=== PATIENT | female | born 1935 | race Caucasian/White ===

== ENCOUNTER 2016-09-22 08:12 | Emergency (ER) | payer MEDICARE, OTHER ==
[~2016-09-22] VITALS: Ht 167.6 cm; Wt 56.7 kg
[~2016-09-22 08:12] MED LIST: AMLO5TAB2 PO; APIX5TAB PO; CLON1PAT33 TD; LOVA10TA PO
--- OUTSIDE RECORDS SUMMARY | 2016-09-22 08:17 | XMS REPORT | Continuity of Care Document ---
Author Author [facility] Organization [facility] Address Unknown Phone Unavailable Care Team Providers Care Hat Trimmer Name Role Phone NO, LOCAL PHYSICIAN PCP Unavailable Insurance Providers Payer Name Policy Number Subscriber Name Relationship Wps Medicare Part A Only [id number] Kristin Segura 19 Self / Same As Patient Advance Directives Directive Response Recorded Date/Time Advance Directives No 04/29/16 10:54pm Health Care Power of Letter Of Credit Document Examiner No 04/29/16 10:54pm Organ Donor No 04/29/16 10:54pm Resuscitation Status Full Code 04/29/16 10:54pm Chief Complaint and Reason for Visit Chief Complaint IMPAIRED SWOLLOWING Reason for Visit Atrial fibrillation Cerebral infarct Problems Active Problems Medical Problem Onset Date Status Atrial fibrillation Unknown Acute Cerebral infarct Unknown Acute Medications Current Home Medications Medication Dose Units Route Directions Days/Qty Instructions Start Date Clonidine 1 Each 0.1 Mg Transderm Q7d@16 4 05/05/16 Amlodipine Besylate 5 Mg 5 Mg Oral Daily 30 05/05/16 Apixaban 5 Mg 5 Mg Oral Twice A Day 60 05/05/16 Lovastatin 10 Mg 10 Mg Oral Bedtime 30 05/05/16 Social History Social History Problem Response Recorded Date/Time Alcohol Use Denies Use 04/29/2016 10:55pm Recreational Drug Use No 04/29/2016 10:55pm Recent Foreign Travel No 04/29/2016 11:06pm Recent Infectious Disease Exposure No 04/29/2016 11:06pm Hospitalization with Isolation Denies 05/05/2016 4:08pm Smoking Status Never a Smoker 04/29/2016 10:57pm Recent Hopitalizations No 04/29/2016 10:55pm Hospitalization with Isolation Denies 05/05/2016 4:08pm Query Response Start Date Stop Date Smoking Status Never a Smoker Hospital Discharge Instructions Patient Instructions Physician Instructions Patient Problems: Catastrophic CVA w/right sided hemiparesis HTN OOC AF Dysphagia Goal: Strengthen Follow Up Appt.: Establish care with a doctor Certification (SNF) I certify that SNF services are required to be given on an inpatient basis because of the above named patient's need for [place] [facility] care on a continuing basis for the conditions(s) for which he/she was receiving inpatient hospital services prior to his/her transfer to the SNF. Group Home Facility Order: Nursing Services, Grass[employer] Organizer-Evaluate & Treat, Physical Therapy-Evaluate & Treat, Speech Language-Evaluate & Treat Discharge Diet: Other Diet (pureed diet and liquids with straw) Daily Activity as Tolerated: Yes Kira Fallon May 05, 2016 10:06 Pneu Vac Indicated: Yes Care Plan Goal:: Strengthen Patient Problems: Catastrophic CVA w/right sided hemiparesisHTN OOCAFDysphagia Plan of Care Discharge Date 05/05/16 1:20pm Disposition 09 ADMITTED INPATIENT Instructions/Education Provided Chronic Dysphagia (GEN) Forms Provided PDI Medical Prescriptions See Medication Section Care Plan and Goals See Discharge Instructions Section Functional Status Query Response Date Recorded Patient Orientation Unable to Assess May 04, 2016 11:15am Patient Orientation Non-Verbal/Aphasic Eyes Open May 05, 2016 4:08pm Comprehension Ability Unable to Comprehend May 05, 2016 8:30am Allergies, Adverse Reactions, Alerts No known allergies. Immunizations Name Given Type FLU TRIvalent 5 years - Adult 04/30/16 Administered Vital Signs Acute Vital Signs Vital Response Date/Time Temperature (Fahrenheit) 96.6 degrees F (97.6 - 99.5) 05/05/2016 4:04pm Temperature (Calculated Celsius) 35.11976 degrees C (36.4 - 37.5) 05/05/2016 8:00am Temperature Source Tympanic 05/05/2016 4:04pm Pulse Rate (adult) 85 bpm (60 - 90) 05/05/2016 4:04pm Respiratory Rate 16 bpm (12 - 24) 05/05/2016 4:04pm O2 Sat by Pulse Oximetry 94 % (88 - 100) 05/05/2016 4:04pm Blood Pressure 135/71 mm Hg 05/05/2016 4:04pm Blood Pressure Mean 92 mm Hg 05/05/2016 8:00am Pain Numeric Pain Scale 0-No Pain 05/05/2016 4:04pm Height (Feet) 5 feet 04/29/2016 11:06pm Height (Inches) 9.00 inches 04/29/2016 11:06pm Height (Calculated Centimeters) 175.602937 cm 04/29/2016 11:06pm Weight (Pounds) 129 pounds 05/01/2016 6:00am Weight (Ounces) 3.0 oz 05/01/2016 6:00am Weight (Calculated Grams) 33702.465 gm 05/01/2016 6:00am Weight (Calculated Kilograms) 58.350205 kilograms 05/01/2016 6:00am Calculated BMI 17.9 04/29/2016 11:06pm Capillary Refill Capillary Refill Less Than 3 Seconds 04/30/2016 4:00am Results Laboratory Results Test Name Result Units Flags Reference Collection Date/Time Result Date/ Time Comments White Blood Count 7.8 10^3/uL 4.3-11.0 05/05/2016 4:21am 05/05/2016 5: 07am Red Blood Count 4.06 10^6/uL L 4.35-5.85 05/05/2016 4:21am 05/05/2016 5: 07am Hemoglobin 12.4 G/DL 11.5-16.0 05/05/2016 4:21am 05/05/2016 5:07am Hematocrit 38 % 35-52 05/05/2016 4:21am 05/05/2016 5:07am Mean Corpuscular Volume 93 FL 80-99 05/05/2016 4:21am 05/05/2016 5: 07am Mean Corpuscular Hemoglobin 31 PG 25-34 05/05/2016 4:21am 05/05/2016 5: 07am Mean Corpuscular Hemoglobin Concent 33 G/DL 32-36 05/05/2016 4:21am 5:07am Red Cell Distribution Width 13.9 % 10.0-14.5 05/05/2016 4:2015 5:07am Platelet Count 272 10^3/uL 130-400 05/05/2016 4:05/05/2016 5:07am Mean Platelet Volume 11.1 FL H 7.4-10.4 05/05/2016 4:05/05/2016 5: 07am Neutrophils (%) (Auto) 77 % H 42-75 05/05/2016 4:am 05/05/2016 5:07am Lymphocytes (%) (Auto) 14 % 12-44 05/05/2016 4:05/05/2016 5:07am Monocytes (%) (Auto) 8 % 0-12 05/05/2016 4:05/05/2016 5:07am Eosinophils (%) (Auto) 2 % 0-10 05/05/2016 4:05/05/2016 5:07am Basophils (%) (Auto) 0 % 0-10 05/05/2016 4:05/05/2016 5:07am Neutrophils # (Auto) 6.0 X 10^3 1.8-7.8 05/05/2016 4:05/05/2016 5: 07am Lymphocytes # (Auto) 1.1 X 10^3 1.0-4.0 05/05/2016 4:05/05/2016 5: 07am Monocytes # (Auto) 0.6 X 10^3 0.0-1.0 05/05/2016 4:05/05/2016 5: 07am Eosinophils # (Auto) 0.1 10^3/uL 0.0-0.3 05/05/2016 4:05/05/2016 5 :07am Basophils # (Auto) 0.0 10^3/uL 0.0-0.1 05/05/2016 4:05/05/2016 5: 07am Neutrophils % (Manual) 91 % 04/29/2016 6:00pm 04/29/2016 6:50pm Band Neutrophils 2 % 04/29/2016 6:00pm 04/29/2016 6:50pm Lymphocytes % (Manual) 6 % 04/29/2016 6:00pm 04/29/2016 6:50pm Monocytes % (Manual) 1 % 04/29/2016 6:00pm 04/29/2016 6:50pm Eosinophils % (Manual) 0 % 04/29/2016 6:00pm 04/29/2016 6:50pm Basophils % (Manual) 0 % 04/29/2016 6:00pm 04/29/2016 6:50pm Blood Morphology Comment NORMAL 04/29/2016 6:00pm 04/29/2016 6: 50pm Prothrombin Time 12.9 SEC 12.2-14.7 04/29/2016 6:00pm 04/29/2016 6: 27pm INR Comment 1.0 0.8-1.4 04/29/2016 6:00pm 04/29/2016 6:27pm INTERPRETIVE DATA SUGGESTED THERAPEUTIC RANGE FOR INR'S: VENOUS THROMBOSIS, PULMONARY EMBOLISM, OR PREVENTION OF SYSTEMIC EMBOLISM (EG. IN ATRIAL FIBRILLATION): 2.0 - 3.0 MECHANICAL PROSTHETIC HEART VALVES: 2.5 - 3.5* *NOTE: INR'S UP TO 4.5 MAY BE NECESSARY IN SELECTED GROUPS OF HIGH RISK PATIENTS. [employer] CONSENSUS CONFERENCE ON ANTITHROMBOTIC THERAPY (2000). Activated Partial Thromboplast Time 22 SEC L 24-35 04/29/2016 6:00pm 6:28pm Urine Color YELLOW 04/29/2016 6:30pm 04/29/2016 7:06pm Urine Clarity CLEAR 04/29/2016 6:30pm 04/29/2016 7:06pm Urine pH 7 5-9 04/29/2016 6:30pm 04/29/2016 7:06pm Urine Specific [place] 1.010 * 1.016-1.022 04/29/2016 6:30pm 2015 7:06pm Urine Protein 1+ * NEGATIVE 04/29/2016 6:30pm 04/29/2016 7:06pm Urine Glucose (UA) NEGATIVE NEGATIVE 04/29/2016 6:30pm 04/29/2016 7: 06pm Urine RBC (Auto) NEGATIVE NEGATIVE 04/29/2016 6:30pm 04/29/2016 7: 06pm Urine Ketones 2+ * NEGATIVE 04/29/2016 6:30pm 04/29/2016 7:06pm Urine Nitrite NEGATIVE NEGATIVE 04/29/2016 6:30pm 04/29/2016 7:06pm Urine Bilirubin NEGATIVE NEGATIVE 04/29/2016 6:30pm 04/29/2016 7: 06pm Urine Urobilinogen NORMAL MG/DL NORMAL 04/29/2016 6:30pm 04/29/2016 7: 06pm Urine Leukocyte Esterase NEGATIVE NEGATIVE 04/29/2016 6:30pm 2015 7:06pm Urine RBC 0-2 /HPF 04/29/2016 6:30pm 04/29/2016 7:06pm Urine WBC RARE /HPF 04/29/2016 6:30pm 04/29/2016 7:06pm Urine Bacteria NEGATIVE /HPF 04/29/2016 6:30pm 04/29/2016 7:06pm Urine Crystals NONE /LPF 04/29/2016 6:30pm 04/29/2016 7:06pm Urine Casts NONE /LPF 04/29/2016 6:30pm 04/29/2016 7:06pm Urine Mucus SMALL /LPF * 04/29/2016 6:30pm 04/29/2016 7:06pm Urine Culture Indicated NO 04/29/2016 6:30pm 04/29/2016 7:06pm Sodium Level 141 MMOL/L 135-145 05/05/2016 4:21am 05/05/2016 5:27am Potassium Level 4.0 MMOL/L 3.6-5.0 05/05/2016 4:21am 05/05/2016 5:27am Chloride Level 107 MMOL/L 98-107 05/05/2016 4:21am 05/05/2016 5:27am Carbon Dioxide Level 27 MMOL/L 21-32 05/05/2016 4:21am 05/05/2016 5: 27am Anion Gap 7 MMOL/L 5-14 05/05/2016 4:21am 05/05/2016 5:27am Blood Urea Nitrogen 13 MG/DL 7-18 05/05/2016 4:21am 05/05/2016 5:27am Creatinine 0.78 MG/DL 0.60-1.30 05/05/2016 4:21am 05/05/2016 5:27am BUN/Creatinine Ratio 17 05/05/2016 4:21am 05/05/2016 5:27am Estimat Glomerular Filtration Rate > 60 05/05/2016 4:21am 2015 5:27am GFR INTERPRETIVE DATA UNITS FOR ESTIMATED GFR (eGFR): mL/min/1.73 M2 REFERENCE RANGE FOR ESTIMATED GFR (eGFR) eGFR NORMAL eGFR >60 MODERATELY DECREASED eGFR 30-59 SEVERLY DECREASED eGFR 15-29 KIDNEY FAILURE <15 (OR DIALYSIS) Glucose Level 109 MG/DL H 70-105 05/05/2016 4:21am 05/05/2016 5:27am Calcium Level 8.4 MG/DL L 8.5-10.1 05/05/2016 4:21am 05/05/2016 5:27am Phosphorus Level 4.7 MG/DL 2.3-4.7 04/30/2016 4:03am 04/30/2016 5:17am Magnesium Level 2.2 MG/DL 1.8-2.4 04/30/2016 4:03am 04/30/2016 5:17am Total Bilirubin 0.7 MG/DL 0.1-1.0 04/29/2016 6:00pm 04/29/2016 6:38pm Alkaline Phosphatase 78 U/L 40-136 04/29/2016 6:00pm 04/29/2016 6:38pm Aspartate Amino Transf (AST/SGOT) 27 U/L 5-34 04/29/2016 6:00pm 2015 6:38pm Alanine Aminotransferase (ALT/SGPT) 27 U/L 0-55 04/29/2016 6:00pm 04/29 6:38pm Total Protein 7.3 G/DL 6.4-8.2 04/29/2016 6:00pm 04/29/2016 6:38pm Albumin 4.2 G/DL 3.2-4.5 04/29/2016 6:00pm 04/29/2016 6:38pm Triglycerides Level 122 MG/DL <150 05/04/2016 5:22am 05/04/2016 10: 08am Cholesterol Level 166 MG/DL < 200 05/04/2016 5:22am 05/04/2016 10:08am HDL Cholesterol 38 MG/DL L 40-60 05/04/2016 5:22am 05/04/2016 10:08am LDL Cholesterol Direct 100 MG/DL 1-129 05/04/2016 5:22am 05/04/2016 10: 08am VLDL Cholesterol 24 MG/DL 5-40 05/04/2016 5:22am 05/04/2016 10:08am Thyroid Stimulating Hormone (TSH) 0.89 UIU/ML 0.35-4.94 05/02/2016 6: 07am 05/02/2016 7:20am Microbiology Results Procedure Source Result Collection Date/Time Result Date/Time MRSA Screen Nasal MRSA not isolated 04/29/2016 9:35pm 05/01/2016 7:40am Procedures Procedure Status Date Provider(s) Tracing only of electrocardiogram Completed 04/29/16 KITTY ESPARZA [employer] FOREMAN Color Doppler echocardiography Active 05/01/16 FRANCK HOWELL MD FACP FACC CCDS Encounters Encounter Location Arrival/Admit Date Discharge/Depart Date Attending Provider Admitted Inpatient [facility] 04/29/16 7:18pm KIRA FALLON DO Recent Diagnosis Atrial fibrillation Cerebral infarct
[2016-09-22 08:34] LABS: BASOPHILS % (AUTO) 0 % (0-10); EOSINOPHILS % (AUTO) 0 % (0-10); LYMPHOCYTES # (AUTO) 0.6 X 10^3 (1.0-4.0); LYMPHOCYTES % (AUTO) 5 % (12-44); MEAN CORPUSCULAR HEMOGLOBIN 28 PG (25-34); MEAN CORPUSCULAR HGB CONC 34 G/DL (32-36); MEAN CORPUSCULAR VOLUME 83 FL (80-99); MONOCYTES # (AUTO) 0.5 X 10^3 (0.0-1.0); MONOCYTES % (AUTO) 4 % (0-12); NEUTROPHILS # (AUTO) 11.2 X 10^3 (1.8-7.8); NEUTROPHILS % (AUTO) 91 % (42-75); PLATELET COUNT 310 10^3/uL (130-400); RED BLOOD COUNT 5.66 10^6/uL (4.35-5.85); RED CELL DISTRIBUTION WIDTH 13.9 % (10.0-14.5); WHITE BLOOD COUNT 12.3 10^3/uL (4.3-11.0)
--- NOTE | 2016-09-22 08:40 | Diagnostic Imaging Report ---
CLINICAL INDICATION: Patient with stroke and unable to speak. EXAM: Axial CT scan of the brain performed without IV contrast. COMPARISON: CT angiogram of the head/neck dated 04/29/2016. MRI of the brain performed without and with IV contrast dated 04/30/2016. FINDINGS: There is interval evolution of the previously seen large left cerebral hemisphere cerebral infarct in the left MCA distribution. There is now a residual large area of encephalomalacia involvement which has developed in the interim. There is encephalomalacia with ex vacuo dilation of the left lateral ventricle. There is otherwise no significant change to the patchy areas of low-attenuation white matter changes involving both cerebral hemispheres suspected to represent chronic small-vessel ischemic disease. The brain parenchymal volume appears appropriate for patient's age. There is no hydrocephalus. There is no intraventricular hemorrhage, brain herniation, or midline shift. Basal cisterns are unremarkable. The extracranial soft tissue, skull, and orbits are unremarkable. Paranasal sinuses and temporal bone structures show no significant abnormality. IMPRESSION: 1. There is no definite CT evidence of interval acute cerebral infarction, intracranial hemorrhage, or mass seen. Given the diffuse low-attenuation changes throughout the brain parenchyma which can obscure more subtle findings. If there is clinical concern for acute cerebral infarction, MRI of the brain would better evaluate. 2. Interval evolution of the previously seen large left cerebral hemisphere cerebral infarct in the left MCA distribution with now encephalomalacia present. 3: Likely patchy areas of chronic small-vessel ischemic disease. Report was called and faxed to nurse Wilson for Dr. Hunter Suggs at [facility] regarding results of this report @ 8:39 AM/queenie. Dictated by: Dictated on workstation # [id number]
--- NOTE | 2016-09-22 08:45 | Diagnostic Imaging Report ---
INDICATION: Possible stroke, right-sided neglect, nonverbal. Previous history of a stroke. FINDINGS: Frontal view of the chest is compared to an exam from 04/30/2016. The interstitial markings are again seen to be slightly prominent. Heart size remains at the upper limits of normal. Pulmonary vessels appear normal. No effusions or focal infiltrates are present. IMPRESSION: Stable chest with borderline cardiomegaly and mild interstitial disease. Dictated by: Dictated on workstation # [id number]
[2016-09-22 09:02] LABS: BAND NEUTROPHILS 0 %; BASOPHILS % (MANUAL) 0 %; EOSINOPHILS % (MANUAL) 0 %; LYMPHOCYTES % (MANUAL) 6 %; NEUTROPHILS % (MANUAL) 90 %
[2016-09-22 09:06] LABS: ALANINE AMINOTRANSFERASE 16 U/L (0-55); ANION GAP 16 MMOL/L (5-14); ASPARTATE AMINO TRANSFERASE 20 U/L (5-34); BILIRUBIN,TOTAL 0.8 MG/DL (0.1-1.0); BLOOD UREA NITROGEN 20 MG/DL (7-18); BUN/CREATININE RATIO 19; CALCIUM 10.2 MG/DL (8.5-10.1); CARBON DIOXIDE 18 MMOL/L (21-32); CHLORIDE 102 MMOL/L (98-107); CREATININE SERUM 1.07 MG/DL (0.60-1.30); GFR ESTIMATED 49; GLUCOSE 147 MG/DL (70-105); POTASSIUM 4.3 MMOL/L (3.6-5.0); SODIUM 136 MMOL/L (135-145); TOTAL PROTEIN 7.6 G/DL (6.4-8.2)
[2016-09-22 09:13] LABS: TROPONIN I < 0.30 NG/ML (<0.30)
[2016-09-22 09:16] LABS: PROTHROMBIN TIME PATIENT 13.2 SEC (12.2-14.7)
[2016-09-22] MEDS ORDERED: NS IV 1000 ML 1,000 ML IV ONE (09:26)
[2016-09-22] MEDS ORDERED: CATHETER FLUSH 10 ML SYR IV PRN (09:45)
[2016-09-22] MEDS ORDERED: NS 100 ML (IVPB) BAG IV ONE (09:45)
[2016-09-22] MEDS ORDERED: IOHEXOL 350 MG/ML 150 ML (OMNIPAQUE 350) VIAL IV ONE (09:45)
--- NOTE | 2016-09-22 11:52 | Diagnostic Imaging Report ---
PROCEDURE: CT angiography of the head and CT angiography of the neck with and without contrast. TECHNIQUE: Contiguous noncontrast images were obtained from the skull base through the vertex. After intravenous contrast administration, helical CT angiography of the neck was performed. Source data was reformatted into multiple MIP projections. Delayed post contrast acquisition was also obtained. INDICATION: Patient is unable to communicate, possible stroke. 75 mL of Omnipaque 350 is administered intravenously. FINDINGS: CTA neck: There is atherosclerotic plaque in the aortic arch with no high-grade stenosis in the ostium of the great vessels. The brachiocephalic and right common carotid arteries are patent. Mild calcified plaque at the origin of the right ICA seen with no significant stenosis. The right external carotid artery is patent. The left common carotid artery is patent. Mild plaque at the carotid bifurcation is seen without significant stenosis. The left ECA is patent. The left vertebral artery demonstrates mild disease in its mid portion and is generally patent. The right vertebral artery demonstrates good opacification with no significant stenosis. CTA head: The intracranial portions of the vertebral arteries demonstrate diminished caliber of the right vertebral artery and dominant supply of the basilar artery from the left vertebral artery. The basilar artery is patent. The right WOR[employer] LANGU[employer] TEACHER is essentially a continuation of the basilar artery which is small in caliber with contribution from the right PCoA. The left WORLD LANGUAGE TEACHER P1 segment is very small with most of its perfusion from a well-formed left PCoA. The internal carotid arteries intracranial segments on both sides are patent with mild atherosclerotic plaque in the cavernous segment and supraclinoid segments with no high-grade stenosis, occlusion, or aneurysm seen. The left MCA, bilateral LIZA, and the anterior communicating artery as well as the right MCA are all patent with no high-grade stenosis seen. The major dural venous sinuses appear patent. The soft tissue evaluation in the parenchymal phase on the head demonstrates a large left MCA territory infarct with encephalomalacia. There is no enhancing mass. Background periventricular and deep white matter hypodensities compatible with chronic microvascular ischemic changes seen. IMPRESSION: CTA neck: Mild atherosclerotic disease at the carotid bifurcation bilaterally with no high-grade stenosis or occlusion. CTA head: No high-grade stenosis, occlusion, or aneurysm in the central intracranial arteries. There is late subacute/chronic large left MCA distribution infarct. Dictated by: Dictated on workstation # [id number]
--- NOTE | 2016-09-22 12:18 | Diagnostic Imaging Report ---
CTA of the chest and CT scan of the abdomen and pelvis. CTA protocol in the chest with multiple reconstructions in the coronal and oblique planes with MIP reconstruction technique was performed (MIP.) INDICATION: Patient is unable to communicate. 75 mL of Omnipaque 350 is administered intravenously. FINDINGS: The pulmonary arteries demonstrate mild/ moderate opacification with no filling defects to suggest pulmonary embolism seen in the pulmonary trunk or the lobar branches. The segmental and subsegmental branches are not well evaluated mainly due to the timing of the contrast bolus but also related to patient motion artifact and position of the arms in front of the chest which result in beam hardening artifacts, and therefore overall segmental and subsegmental branches cannot be reliably evaluated on this exam. The thoracic aorta is normal in caliber. No dissection. There is no mediastinal mass. No mediastinal or hilar lymphadenopathy. The lungs demonstrate no significant consolidation. Upper lobe predominant relatively mild emphysema changes are seen. There is pleural parenchymal scarring in the lung apices. There is no lung mass or suspicious nodule identified in the lungs. The osseous structures demonstrate age-indeterminate compression fractures in the mid and lower thoracic spine. These are favored to be old. If there is concern of an acute compression fracture, then MRI of the spine can differentiate acute from chronic. CT abdomen and pelvis: There is limitation due to patient motion and breathing motion artifact. The study was repeated in an attempt to better evaluate the missed portions. The liver density is slightly heterogeneous mainly related to artifacts from the overlying hands with no definite liver mass. The gallbladder demonstrates no calcified stones. The spleen, the adrenal glands, and the pancreas appear unremarkable. The kidneys demonstrate symmetric enhancement. There is deformity in the lower pole of the right kidney with no definitive mass. There is a 2-cm hypodense lesion exophytic from the outer aspect of the upper pole of the left kidney. Despite repeating the exam, there is significant motion artifact particularly over the kidneys. The kidneys may be evaluated with an ultrasound to assess the findings. The abdominal aorta size normal in caliber. No para-aortic significantly enlarged lymph node is seen. There is no bowel obstruction. There is diverticulosis in the sigmoid colon with no diverticulitis. There is a filling defect in the right common femoral artery compatible with deep venous thrombosis with minimal extension into the right external iliac artery. This is favored to be acute based on its morphology and possibly extends more distally in the right thigh and leg. The left iliac and common femoral veins appear patent. There is no significant free fluid or fluid collection in the abdomen or pelvis. The uterus and adnexa appear grossly unremarkable. There is mild scoliotic curvature in the lumbar spine with mild compression fractures in the upper and lower lumbar spine levels, most likely old. If there is any clinical concern for an acute fracture, then MRI evaluation would be helpful. Sclerotic focus measuring 9 mm in the central aspect of the sacrum inferiorly and slightly to the right adjacent to the first right sacral neural foramen is likely a bony island. IMPRESSION: CTA chest: There are limitations to this exam as described above. No evidence of central pulmonary embolism. The segmental and subsegmental pulmonary artery branches are not well evaluated on this exam. CT abdomen/ pelvis: 1. There is a nonocclusive DVT involving the right CFV with mild extension into the right external iliac vein. There is possible extension below the [id number] into the right thigh. 2. Indeterminate 2-cm lesion in the upper pole of the left kidney. There is also deformity in the lower pole of the right kidney. The motion artifacts prevent optimal evaluation, and followup renal ultrasound is recommended. Findings were discussed with Dr. Suggs by Dr. Solorzano at time of dictation. Dictated by: Dictated on workstation # [id number]
[2016-09-22 12:28] LABS: BILIRUBIN,URINE NEGATIVE (NEGATIVE); KETONES,URINE NEGATIVE (NEGATIVE); LEUKOCYTE ESTERASE ,URINE 3+ (NEGATIVE); NITRITE,URINE POSITIVE (NEGATIVE); PH,URINE 6 (5-9); PROTEIN,URINE 3+ (NEGATIVE); UROBILINOGEN,URINE NORMAL (NORMAL)
[2016-09-22 12:39] LABS: WBC,URINE 25-50 /HPF
--- NOTE | 2016-09-22 13:29 | ED Neurological Problem ---
General Chief Complaint: Neuro-Stroke Like Symptoms Stated Complaint: POSS STROKE Nursing Triage Note: PT HAS RIGHT SIDED NEGLECT AND IS NONVERBAL, PREVIOUS STROKE. PER EMS FAMILY STATES PT WAS FINE AT 0300 AND THINKS PT IS HAVING ANOTHER STROKE. UNKNOWN ONSET OF NEW SYMPTOMS. Nursing Sepsis Screen: No Definite Risk Source: patient Exam Limitations: no limitations History of Present Illness Time seen by provider: 08:14 Initial Comments This 80-year-old woman presents to the emergency room via EMS after her called 911 concerned about a stroke. A stroke activation was paged upon patient 's arrival. EMS reported there was right-sided facial droop and right-sided weakness as well as expressive aphasia. The chronicity was not known to EMS at the time of arrival. 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 He reports no new facial droop. states patient was not her usual self last night at supper time. She seemed to have poor appetite and malaise. She then woke around 03:00 and again was noted to be not her usual self. She seemed excessively groggy and was hanging her head. went back to sleep at that time. He then woke a little while later with patient having an episode of gasping and difficulty breathing. This is when he activated EMS. Patient can provide no history even with yes or no answers due to her severe expressive aphasia. Patient has abdominal tenderness on exam. She seems to be somewhat distressed which her states it is because she does not like medical or hospital encounters. Patient has a history of atrial fibrillation and prior massive stroke. However, they do not seek care with a primary care provider. She was previously in a long-term. states they left the long-term because she was refusing to take medications and because of that he felt there was no need for her to be in the long-term anymore. Patient's has some unusual beliefs about patient's healthcare. For example, he believes her stroke was due to the installation of a smart meter by the [employer]) at their home, not by her atrial fibrillation. He also believes silver should be use for antibiotic therapy rather than medications. Not long after the stroke activation it was determined patient was not a TPA candidate because of the uncertain time of onset and doubt that there are any new neurologic symptoms. Allergies and Home Medications Allergies Coded Allergies: No Known Drug Allergies (Unverified , 04/29/16) Home Medications Apixaban 5 Mg Tablet #28 10 MG PO BID 2 TABLETS TWICE DAILY X 7 DAYS Prescribed by: HUNTER SIMON on 09/22/16 143 Apixaban 5 Mg Tablet #60 5 MG PO BID Prescribed by: HUNTER SIMON on 09/22/161435 Cephalexin 500 Mg Capsule #28 500 MG PO QID May empty capsules and mix with food Prescribed by: HUNTER SIMON on 09/22/16 143 Constitutional: no symptoms reported Eyes: No Symptoms Reported Ears, Nose, Mouth, Throat: no symptoms reported Respiratory: see HPI Cardiovascular: see HPI Gastrointestinal: see HPI Genitourinary: no symptoms reported : No Musculoskeletal: other (contractures of the right extremities) Skin: no symptoms reported Psychiatric/Neurological: See HPI Endocrine: No Symptoms Reported Past Rceuoat-Hgxlrc-Rgoaaw Hx Patient Social History Alcohol Use: Denies Use Recreational Drug Use: No Smoking Status: Never a Smoker Recent Foreign Travel: No Contact w/Someone Who Travel: No Recent Infectious Disease Expo: No Recent Hopitalizations: No Immunizations Up To Date Tetanus Booster (TDap): Unknown Seasonal Allergies Seasonal Allergies: No Surgeries HX Surgeries: No Respiratory Hx Respiratory Disorders: No Cardiovascular Hx Cardiac Disorders: Yes Cardiac Disorders: Atrial Fibrillation Neurological Hx Neurological Disorders: Yes Neurological Disorders: Stroke (with expressive aphasia, right-sided paralysis) Reproductive System Hx Reproductive Disorders: No Genitourinary Hx Genitourinary Disorders: No Gastrointestinal Hx Gastrointestinal Disorders: No Musculoskeletal Hx Musculoskeletal Disorders: No Endocrine Hx Endocrine Disorders: No HEENT HX ENT Disorders: No Cancer Hx Cancer: No Psychosocial Hx Psychiatric Problems: No Integumentary HX Skin/Integumentary Disorder: No Blood Transfusions Hx Blood Disorders: No Family Medical History Family Medial History: Patient reports no known family medical history. Physical Exam Vital Signs Vital Sign - Last 12Hours 09/22/16 09/22/16 08:22 08:27 Pulse 92 Resp 20 B/P 188/100 Pulse Ox 96 O2 Delivery Nasal Cannula O2 Flow Rate 2 Capillary Refill : Less Than 3 Seconds General Appearance: WD/WN mild distress HEENT: PERRL/EOMI normal ENT inspection other (oropharynx somewhat dry) Neck: normal inspection Respiratory: lungs clear normal breath sounds no respiratory distress no accessory muscle use Cardiovascular: no edema no murmur irregularly irregular Gastrointestinal: normal bowel sounds soft tenderness (generalized) Extremities: normal inspection no pedal edema other (right extremities contractured) Neurologic/Psychiatric: alert Crainal Nerves: PERRL abnormal speech (expressive aphagia) other (does not follow instructions well) Motor/Sensory: weak motor strength RUE (with contractures) weak motor strength RLE (with contractures) Skin: normal color warm/dry Stroke NIH Stroke Scale Assessment Select: Initial (high stroke score is likely partially secondary to patient' s inability to comprehend instructions) Level of Consciousness: 0=Alert Level of Consciousness-Questio: 2=Answer neither question LOC Commands: 2=Performs neither task Gaze: 2=Forced Deviation Visual Gutierrez: 0=No visual loss Facial Movement (Facial Paresi: 2=Partial paralysis Motor Function-Arms Right: 2=Some effort/gravity Motor Function-Arms Left: 2=Some effort/gravity Motor Function-Legs Right: 4=No movement Motor Function-Legs Left: 4=No movement Limb Ataxia: 2=Present in two limbs Sensory: 2=Severe to total loss Best Language: 2=Severe aphasia Dysarthria: 2=Severe dysarthria Extinction & Inattention: 2=ProfoundHemiInattention NIH Stroke Scale Score: 30 Stroke Thrombolytic Exclusion Age 18 or Over: Yes NIH Stoke Scale >22: Yes TPA Contraindication: Yes Focused Exam Lactic Acid Level Laboratory Tests Test 09/22/16 08:25 09/22/16 08:26 Alanine Aminotransferase (ALT/SGPT) 16U/L (0-55) Albumin 4.0G/DL (3.2-4.5) Alkaline Phosphatase 69U/L (40-136) Anion Gap 16MMOL/L (5-14) H Aspartate Amino Transf (AST/SGOT) 20U/L (5-34) B-Type Natriuretic Peptide 250.2PG/ML (<100.0) H BUN/Creatinine Ratio 19 Blood Urea Nitrogen 20MG/DL (7-18) H Calcium Level 10.2MG/DL (8.5-10.1) H Carbon Dioxide Level 18MMOL/L (21-32) L Chloride Level 102MMOL/L (98-107) Creatinine 1.07MG/DL (0.60-1.30) Estimat Glomerular Filtration Rate 49 Glucose Level 147MG/DL (70-105) H Potassium Level 4.3MMOL/L (3.6-5.0) Sodium Level 136MMOL/L (135-145) Total Bilirubin 0.8MG/DL (0.1-1.0) Total Protein 7.6G/DL (6.4-8.2) Troponin I < 0.30NG/ML (<0.30) Glucometer 135MG/DL (70-110) H Progress/Results/Core Measures Results/Orders Lab Results Laboratory Tests Test 09/22/16 08:25 09/22/16 08:26 09/22/16 09:00 09/22/16 12:20 Range/Units Alanine Aminotransferase (ALT/SGPT) 16 0-55 U/L Albumin 4.0 3.2-4.5 G/DL Alkaline Phosphatase 69 40-136 U/L Anion Gap 16 H 5-14 MMOL/L Aspartate Amino Transf (AST/SGOT) 20 5-34 U/L B-Type Natriuretic Peptide 250.2 H <100.0 PG/ML BUN/Creatinine Ratio 19 Band Neutrophils 0 % Basophils # (Auto) 0.0 0.0-0.1 10^3/uL Basophils % (Manual) 0 % Basophils (%) (Auto) 0 0-10 % Blood Morphology Comment NORMAL Blood Urea Nitrogen 20 H 7-18 MG/DL Calcium Level 10.2 H 8.5-10.1 MG/DL Carbon Dioxide Level 18 L 21-32 MMOL/L Chloride Level 102 98-107 MMOL/L Creatinine 1.07 0.60-1.30 MG/DL Eosinophils # (Auto) 0.0 0.0-0.3 10^3/uL Eosinophils % (Manual) 0 % Eosinophils (%) (Auto) 0 0-10 % Estimat Glomerular Filtration Rate 49 Glucose Level 147 H 70-105 MG/DL Hematocrit 47 35-52 % Hemoglobin 15.9 11.5-16.0 G/DL Lymphocytes # (Auto) 0.6 L 1.0-4.0 X 10^3 Lymphocytes % (Manual) 6 % Lymphocytes (%) (Auto) 5 L 12-44 % Mean Corpuscular Hemoglobin 28 25-34 PG Mean Corpuscular Hemoglobin Concent 34 32-36 G/DL Mean Corpuscular Volume 83 80-99 FL Mean Platelet Volume 10.0 7.4-10.4 FL Monocytes # (Auto) 0.5 0.0-1.0 X 10^3 Monocytes % (Manual) 4 % Monocytes (%) (Auto) 4 0-12 % Neutrophils # (Auto) 11.2 H 1.8-7.8 X 10^3 Neutrophils % (Manual) 90 % Neutrophils (%) (Auto) 91 H 42-75 % Platelet Count 310 130-400 10^3/uL Potassium Level 4.3 3.6-5.0 MMOL/L Red Blood Count 5.66 4.35-5.85 10^6/uL Red Cell Distribution Width 13.9 10.0-14.5 % Sodium Level 136 135-145 MMOL/L Total Bilirubin 0.8 0.1-1.0 MG/DL Total Protein 7.6 6.4-8.2 G/DL Troponin I < 0.30 <0.30 NG/ML White Blood Count 12.3 H 4.3-11.0 10^3/uL Glucometer 135 H 70-110 MG/DL Activated Partial Thromboplast Time 23 L 24-35 SEC D-Dimer 3.33 H 0.00-0.49 UG/ML INR Comment 1.0 0.8-1.4 Prothrombin Time 13.2 12.2-14.7 SEC Urine Bacteria MODERATE H /HPF Urine Bilirubin NEGATIVE NEGATIVE Urine Casts NONE /LPF Urine Clarity CLEAR Urine Color YELLOW Urine Crystals NONE /LPF Urine Culture Indicated YES Urine Glucose (UA) NEGATIVE NEGATIVE Urine Ketones NEGATIVE NEGATIVE Urine Leukocyte Esterase 3+ H NEGATIVE Urine Mucus NEGATIVE /LPF Urine Nitrite POSITIVE H NEGATIVE Urine Protein 3+ H NEGATIVE Urine RBC 2-5 H /HPF Urine RBC (Auto) 3+ H NEGATIVE Urine Specific Sanborn 1.015 L 1.016-1.022 Urine Squamous Epithelial Cells 10-25 H /HPF Urine Urobilinogen NORMAL NORMAL MG/DL Urine WBC 25-50 H /HPF Urine pH 6 5-9 Micro Results Microbiology 09/22/16 Urine Culture - Preliminary, Resulted My Orders Orders-HUNTER SUGGS MD Ct Head Wo-R/O Stroke (09/22/16 08:16) Cbc With Automated Diff (09/22/16 08:16) Protime With Inr (09/22/16 08:16) Partial Thromboplastin Time (09/22/16 08:16) Comprehensive Metabolic Panel (09/22/16 08:16) Fibrin Degradation Products (09/22/16 08:16) Troponin I (09/22/16 08:16) Ua Culture If Indicated (09/22/16 08:16) Chest 1 View, Ap/Pa Only (09/22/16 08:16) Ekg Tracing (09/22/16 08:16) Nothing By Mouth (09/22/16 Lunch) Accucheck Stat ONCE (09/22/16 08:16) Saline Lock/Iv-Start (09/22/16 08:16) Saline Lock/Iv-Start (09/22/16 08:16) Vital Signs-Stroke Q1H (09/22/16 08:16) O2 (09/22/16 08:16) Intake & Output 06,14,22 (09/22/16 08:16) Monitor-Rhythm Ecg Trace Only (09/22/16 08:16) Dysphagia Screening Tool (09/22/16 08:16) Manual Differential (09/22/16 08:25) BNP (09/22/16 09:26) Ct Angio Head/Neck (09/22/16 09:26) Ns Iv 1000 Ml (Sodium Chloride 0.9%) (09/22/16 09:26) Iohexol Injection (Omnipaque 350 Mg/Ml 1 (09/22/16 09:45) Sodium Chloride Flush (Catheter Flush Sy (09/22/16 09:45) Ns (Ivpb) (Sodium Chloride 0.9% Ivpb Bag (09/22/16 09:45) Ct Nathalie Chest/Noang Abd-Pelv W (09/22/16 09:51) Urine Culture (09/22/16 12:20) Ceftriaxone Injection (Rocephin Injectio (09/22/16 13:45) Enoxaparin Injection (Lovenox Injection) (09/22/16 14:30) Medications Given in ED Vital Signs/I&O Vital Sign - Last 12Hours 09/22/16 09/22/16 09/22/16 08:22 08:27 14:45 Pulse 92 92 Resp 20 16 B/P 188/100 Pulse Ox 96 96 98 O2 Delivery Nasal Cannula O2 Flow Rate 2 Blood Pressure Mean: 129 Point of Care Testing Finger Stick Blood Glucose: 135 Progress Note : Progress Note Stroke activation was paged out upon patient arrival. However, there was doubt about new stroke as patient did not seem to have any new neurologic symptoms after further history was obtained and 's reason for activating EMS was due to malaise and unusual respiratory activity. Because of the respiratory symptoms and elevated d-dimer, a CT angiogram of the head and chest with non- angiogram study of the abdomen and pelvis was performed. This was also performed to evaluate abdominal pain. Patient was found to have a formal vein thrombosis. No pulmonary embolus was found. Patient was also found to have a urinary tract infection. She was treated with Rocephin. I discussed the case with Dr. Adams. She knows this patient and family from prior admission. She believes admission would not be of much value to the patient at this time given the historical noncompliance and resistance to healthcare. She recommended treating with anticoagulation and antibiotics at home. is agreeable to this. He reports he can crush Eliquis and give it to her with food. Patient also received a liter of normal saline during her ER stay. A Lovenox injection was administered to bridge her anticoagulation until she could start oral Eliquis. ECG Initial ECG Impression Date: Sep 22, 2016 Initial ECG Impression Time: 08:42 Initial ECG Rate: 88 Initial ECG Rhythm: A Fib/Flutter Comment Atrial fibrillation with no ST elevation or depression. Rate controlled. Diagnostic Imaging Diagonstic Imaging: CT Plain Films/CT/US/NM/MRI: chest, abdomen, pelvis Comments CT angiogram of the chest with non-angiogram abdominal and pelvis CT viewed by me and report reviewed. See report below: NAME: CHERELLE SEGURA [facility] REC#: [id number] PT STATUS: REG ER : 1935 PHYSICIAN: HUNTER SUGGS MD ADMIT DATE: 09/22/16/ER Draft Date of Exam:09/22/16 CT NATHALIE CHEST/NOANG ABD-PELV W CTA of the chest and CT scan of the abdomen and pelvis. CTA protocol in the chest with multiple reconstructions in the coronal and oblique planes with MIP reconstruction technique was performed (MIP.) INDICATION: Patient is unable to communicate. 75 mL of Omnipaque 350 is administered intravenously. FINDINGS: The pulmonary arteries demonstrate mild/ moderate opacification with no filling defects to suggest pulmonary embolism seen in the pulmonary trunk or the lobar branches. The segmental and subsegmental branches are not well evaluated mainly due to the timing of the contrast bolus but also related to patient motion artifact and position of the arms in front of the chest which result in beam hardening artifacts, and therefore overall segmental and subsegmental branches cannot be reliably evaluated on this exam. The thoracic aorta is normal in caliber. No dissection. There is no mediastinal mass. No mediastinal or hilar lymphadenopathy. The lungs demonstrate no significant consolidation. Upper lobe predominant relatively mild emphysema changes are seen. There is pleural parenchymal scarring in the lung apices. There is no lung mass or suspicious nodule identified in the lungs. The osseous structures demonstrate age-indeterminate compression fractures in the mid and lower thoracic spine. These are favored to be old. If there is concern of an acute compression fracture, then MRI of the spine can differentiate acute from chronic. CT abdomen and pelvis: There is limitation due to patient motion and breathing motion artifact. The study was repeated in an attempt to better evaluate the missed portions. The liver density is slightly heterogeneous mainly related to artifacts from the overlying hands with no definite liver mass. The gallbladder demonstrates no calcified stones. The spleen, the adrenal glands, and the pancreas appear unremarkable. The kidneys demonstrate symmetric enhancement. There is deformity in the lower pole of the right kidney with no definitive mass. There is a 2-cm hypodense lesion exophytic from the outer aspect of the upper pole of the left kidney. Despite repeating the exam, there is significant motion artifact particularly over the kidneys. The kidneys may be evaluated with an ultrasound to assess the findings. The abdominal aorta size normal in caliber. No para-aortic significantly enlarged lymph node is seen. There is no bowel obstruction. There is diverticulosis in the sigmoid colon with no diverticulitis. There is a filling defect in the right common femoral artery compatible with deep venous thrombosis with minimal extension into the right external iliac artery. This is favored to be acute based on its morphology and possibly extends more distally in the right thigh and leg. The left iliac and common femoral veins appear patent. There is no significant free fluid or fluid collection in the abdomen or pelvis. The uterus and adnexa appear grossly unremarkable. There is mild scoliotic curvature in the lumbar spine with mild compression fractures in the upper and lower lumbar spine levels, most likely old. If there is any clinical concern for an acute fracture, then MRI evaluation would be helpful. Sclerotic focus measuring 9 mm in the central aspect of the sacrum inferiorly and slightly to the right adjacent to the first right sacral neural foramen is likely a bony island. IMPRESSION: CTA chest: There are limitations to this exam as described above. No evidence of central pulmonary embolism. The segmental and subsegmental pulmonary artery branches are not well evaluated on this exam. CT abdomen/ pelvis: 1. There is a nonocclusive deep venous thrombosis involving the right common femoral vein with mild extension into the right external iliac vein. There is possible extension below the [id number] into the right thigh. 2. Indeterminate 2-cm lesion in the upper pole of the left kidney. There is also deformity in the lower pole of the right kidney. The motion artifacts prevent optimal evaluation, and followup renal ultrasound is recommended. Findings were discussed with Dr. Suggs by Dr. Solorzano at time of dictation. Dictated on workstation # [id number] Dict: 09/22/16 1144 Trans: 09/22/16 1219 QUEENIE [id number] Interpreted by: SHAKIRA SOLORZANO MD Diagonstic Imaging: CT Plain Films/CT/US/NM/MRI: head Comments NAME: IMELDACHERELLE [facility] REC#: [id number] PT STATUS: REG ER : 1935 PHYSICIAN: HUNTER SUGGS MD ADMIT DATE: 09/22/16/ER Draft Date of Exam:09/22/16 CT ANGIO HEAD/NECK PROCEDURE: CT angiography of the head and CT angiography of the neck with and without contrast. TECHNIQUE: Contiguous noncontrast images were obtained from the skull base through the vertex. After intravenous contrast administration, helical CT angiography of the neck was performed. Source data was reformatted into multiple MIP projections. Delayed post contrast acquisition was also obtained. INDICATION: Patient is unable to communicate, possible stroke. 75 mL of Omnipaque 350 is administered intravenously. FINDINGS: CTA neck: There is atherosclerotic plaque in the aortic arch with no high-grade stenosis in the ostium of the great vessels. The brachiocephalic and right common carotid arteries are patent. Mild calcified plaque at the origin of the right ICA seen with no significant stenosis. The right external carotid artery is patent. The left common carotid artery is patent. Mild plaque at the carotid bifurcation is seen without significant stenosis. The left ECA is patent. The left vertebral artery demonstrates mild disease in its mid portion and is generally patent. The right vertebral artery demonstrates good opacification with no significant stenosis. CTA head: The intracranial portions of the vertebral arteries demonstrate diminished caliber of the right vertebral artery and dominant supply of the basilar artery from the left vertebral artery. The basilar artery is patent. The right BINDERY TECHNICIAN is essentially a continuation of the basilar artery which is small in caliber with contribution from the right PCoA. The left BINDERY TECHNICIAN P1 segment is very small with most of its perfusion from a well-formed left PCoA. The internal carotid arteries intracranial segments on both sides are patent with mild atherosclerotic plaque in the cavernous segment and supraclinoid segments with no high-grade stenosis, occlusion, or aneurysm seen. The left MCA, bilateral LIZA, and the anterior communicating artery as well as the right MCA are all patent with no high-grade stenosis seen. The major dural venous sinuses appear patent. The soft tissue evaluation in the parenchymal phase on the head demonstrates a large left MCA territory infarct with encephalomalacia. There is no enhancing mass. Background periventricular and deep white matter hypodensities compatible with chronic microvascular ischemic changes seen. IMPRESSION: CTA neck: Mild atherosclerotic disease at the carotid bifurcation bilaterally with no high-grade stenosis or occlusion. CTA head: No high-grade stenosis, occlusion, or aneurysm in the central intracranial arteries. There is late subacute/chronic large left MCA distribution infarct. Dictated on workstation # [id number] Dict: 09/22/16 1110 Trans: 09/22/16 1151 [id number] Interpreted by: SHAKIRA SOLORZANO MD Diagonstic Imaging: CT Plain Films/CT/US/NM/MRI: head Comments NAME: IMELDACHERELLE REC#: [id number] PT STATUS: REG ER : 1935 PHYSICIAN: HUNTER SUGGS MD ADMIT DATE: 09/22/16/ER Signed Date of Exam: 09/22/16 CT HEAD WO-R/O STROKE CLINICAL INDICATION: Patient with stroke and unable to speak. EXAM: Axial CT scan of the brain performed without IV contrast. COMPARISON: CT angiogram of the head/neck dated 04/29/2016. MRI of the brain performed without and with IV contrast dated 04/30/2016. FINDINGS: There is interval evolution of the previously seen large left cerebral hemisphere cerebral infarct in the left MCA distribution. There is now a residual large area of encephalomalacia involvement which has developed in the interim. There is encephalomalacia with ex vacuo dilation of the left lateral ventricle. There is otherwise no significant change to the patchy areas of low-attenuation white matter changes involving both cerebral hemispheres suspected to represent chronic small-vessel ischemic disease. The brain parenchymal volume appears appropriate for patient's age. There is no hydrocephalus. There is no intraventricular hemorrhage, brain herniation, or midline shift. Basal cisterns are unremarkable. The extracranial soft tissue, skull, and orbits are unremarkable. Paranasal sinuses and temporal bone structures show no significant abnormality. IMPRESSION: 1. There is no definite CT evidence of interval acute cerebral infarction, intracranial hemorrhage, or mass seen. Given the diffuse low-attenuation changes throughout the brain parenchyma which can obscure more subtle findings. If there is clinical concern for acute cerebral infarction, MRI of the brain would better evaluate. 2. Interval evolution of the previously seen large left cerebral hemisphere cerebral infarct in the left MCA distribution with now encephalomalacia present. 3: Likely patchy areas of chronic small-vessel ischemic disease. Report was called and faxed to Katie for Dr. Hunter Suggs at [facility] regarding results of this report @ 8:39 AM/queenie. Dictated by: Dictated on workstation # [id number] Dict: 09/22/16 0827 Trans: 09/22/16 1201 [id number] Interpreted by: JOHAN BUCK MD Electronically signed by:JOHAN BUCK MD 09/22/16 1201 Diagonstic Imaging: Xray Plain Films/CT/US/NM/MRI: chest Comments NAME: IMELDACHERELLE [facility] REC#: [id number] PT STATUS: REG ER : 1935 PHYSICIAN: HUNTER SUGGS MD ADMIT DATE: 09/22/16/ER Signed Date of Exam: 09/22/16 CHEST 1 VIEW, AP/PA ONLY INDICATION: Possible stroke, right-sided neglect, nonverbal. Previous history of a stroke. FINDINGS: Frontal view of the chest is compared to an exam from 04/30/2016. The interstitial markings are again seen to be slightly prominent. Heart size remains at the upper limits of normal. Pulmonary vessels appear normal. No effusions or focal infiltrates are present. IMPRESSION: Stable chest with borderline cardiomegaly and mild interstitial disease. Dictated by: Dictated on workstation # [id number] Dict: 09/22/16 0842 Trans: 09/22/16 0849 [id number] Interpreted by: MATHEW MCHUGH MD Electronically signed by:MATHEW MCHUGH MD 09/22/16 0852 Departure Impression Impression: Primary Impression: Right leg DVT Qualified Code: I82.411 - Acute embolism and thrombosis of right femoral vein Additional Impressions: Atrial fibrillation Qualified Code: I48.2 - Chronic atrial fibrillation Urinary tract infection Qualified Code: N39.0 - Urinary tract infection, site not specified Disposition: ADMITTED INPATIENT Condition: Improved Departure-Patient Inst. Decision time for Depature: 14:20 Referrals: NO,LOCAL PHYSICIAN (PCP/Family) Primary Care Physician Patient Instructions: Atrial Fibrillation, Deep Vein Thrombosis (Blood Clots in the Legs), Urinary Tract Infection, Adult (DC) Add. Discharge Instructions: Complete your antibiotics as prescribed. You need to establish with and follow- up with a primary care provider immediately. Follow-up on the urine culture results by calling the emergency room or following up with a primary care provider in about 48 hours. This will ensure she is taking the appropriate antibiotics for her infection. Start Eliquis 10 mg twice daily for 7 days followed by 5 mg twice daily until otherwise instructed by your doctor. This will prevent expansion of the blood clot in her leg and event further stroke from her atrial fibrillation. Return to emergency room if symptoms worsen. Encourage plenty of hydration. All discharge instructions reviewed with patient and/or family. Voiced understanding. Scripts Apixaban (Eliquis)5 Mg Tablet5 Mg PO BID #60 TAB Prov:HUNTER SUGGS MD 09/22/16 Apixaban (Eliquis)5 Mg [id number] Mg PO BID #28 TAB 2 TABLETS TWICE DAILY X 7 DAYS Prov:HUNTER SUGGS MD 3/16/17 Cephalexin (Keflex)500 Mg [id number] Mg PO QID #28 CAP May empty capsules and mix with food Prov:HUNTER SUGGS MD 09/22/16 HUNTER SUGGS MD Sep 22, 2016 13:29
[2016-09-22] MEDS ORDERED: cefTRIAXone INJECTION 1,000 MG in NS (IVPB) 50 ML IV ONE (13:45)
[2016-09-22] MEDS ORDERED: ENOXAPARIN 60 MG/0.6 ML (LOVENOX) SYR SC ONE (14:30)
[2016-09-22] MEDS ORDERED: APIX5TAB PO (14:36)
[2016-09-22] MEDS ORDERED: CEPH-507 PO (14:36)
[2016-09-22 14:45] VITALS: BP 162/86
== END 2016-09-22 14:58 | disposition home or self-care (01) ==
LOC: EDUNIT# 08:12 → ER 08:14
DX: I82.411 Acute embolism and thrombosis of right femoral vein (principal); N39.0 Urinary tract infection, site not specified; I48.2 Chronic atrial fibrillation; N28.9 Disorder of kidney and ureter, unspecified; I69.920 Aphasia following unspecified cerebrovascular disease; Z79.01 Long term (current) use of anticoagulants; Z79.899 Other long term (current) drug therapy
CPT/HCPCS: 36415; 51701; 70450; 70496; 70498; 71010; 71275; 74177; 80053; 81000; 82962; 83880; 84484; 85007; 85027; 85379; 85610; 85730; 87088; 93005; 93041; 96361; 96365; 96372